=== PATIENT | male | born 1960 | race Caucasian/White ===

== ENCOUNTER 2017-05-07 13:35 | Observation (INO) | payer OTHER ==
[~2017-05-07] VITALS: Ht 182.9 cm; Wt 122.0 kg
[~2017-05-07 13:35] MED LIST: ASPIRIN EC81 MG PO; BACTRIM DS TAB1 EACH PO; CRESTOR20 MG PO; FENOFIBRATE48 MG PO; FISH OIL500 MG PO; METOPROLOL TART50 MG PO; NAPROXEN500 MG PO; OMEPRAZOLE20 MG PO; ULTRAM50 MG PO; VICODIN 5-3001 EACH PO; ZOFRAN8 MG PO
[2017-05-07] MEDS ORDERED: GLUCOPHAGE500 MG PO (14:05)
[2017-05-07] MEDS ORDERED: AMITRIPTYLINE100 MG PO (14:08)
--- NOTE | 2017-05-07 19:41 | NUR ---
RECIEVED REPORT FROM DAY SHIFT NURSE. PT RESTING IN BED. WOULD LIKE TO KNOW WHAT THE PLAN IS. WAITING ON ORDERS FROM MD. PT DENIES FURTHER NEEDS. CALL MCNEILL IN REACH.
--- NOTE | 2017-05-07 20:00 | NUR ---
PT RESTING IN BED. RATES HIS PAIN IN HIS R SIDE/R ABD 06/05. PAIN MEDICATION ADMINISTERED PER MAR. IVF STARTED. PT AWARE HE IS NPO. DENIES FURTHER NEEDS AT THIS TIME.
--- NOTE | 2017-05-07 22:23 | NUR ---
PT C/O PAIN 05/06 IN R SIDE ABD AND R FLANK. PAIN MEDICATION ADMINISTERED PER OCT.
--- NOTE | 2017-05-07 23:23 | NUR ---
PT PACING IN ROOM. STATES HE IS STILL VERY UNCOMFORTABLE. RATES HIS PAIN 7/10 IN SAME AREA. PAIN MEDICATION ADMINISTERED PER MAR. IVF INFUSING. CONT. PULSE OX IN PLACE. DENIES FURTHER NEEDS.
--- NOTE | 2017-05-08 01:11 | NUR ---
PT SLEEPING ON L SIDE. CALL MCNEILL IN REACH. ORDERS IN CHART. LAB WAS CALLED TO DRAW STAT LACTIC.
--- NOTE | 2017-05-08 02:30 | NUR ---
PT RESTING. PT ON FULL LIQUID DIET. DELIVERED PUDDING, JELLO AND WATER. PT C/O PAIN 03/05. 1 TAB NORCO ADMINISTERED. LR INFUSING AT 100. PT DENIES FURTHER NEEDS. CALL MCNEILL IN REACH.
--- NOTE | 2017-05-08 04:34 | NUR ---
PT C/O NAUSEA. STATES HE HAS BEEN HAVING BOUTS OF NAUSEA THAT COME AND GO, EVEN AT HOME. ZOFRAN ADMINISTERED. PT DENIES FURTHER REQUESTS. CALL OSITO IN REACH.
--- NOTE | 2017-05-08 06:27 | NUR ---
ADMITTED YESTERDAY. RECIEVED IV PAIN MEDS LAST NIGHT WHICH WERE D/C THIS MORNING. PT STATES NORCO WORKS WELL. NAUSEOUS X 1 LAST NIGHT ADMINISTERED ZOFRAN AND PT FELL ASLEEP. LACTIC ACID WNL. ANOTHER ONE TO BE DRAWN THIS A.M. DR. LOZOYA IN THIS A.M STATES HE WILL PROBABLY GO HOME.
[2017-05-08] MEDS ORDERED: NORCO 5-325 TA1 EACH PO (07:56)
[2017-05-08] MEDS ORDERED: CYCLOBENZAPRINE10 MG PO (07:58)
--- NOTE | 2017-05-08 08:00 | NUR ---
PT SITITNG UP IN BED EATING BREAKFAST. NO COMPLAINTS OF NAUSEA. PT REPORTS PAIN 6/10, 2 NORCO TABS GIVEN FOR PAIN
--- NOTE | 2017-05-08 09:58 | NUR ---
DISCHARGE EDUCATION GIVEN WITH D/C PACKET EDU. ON ACTIVITY RESTRICTION, SAFE MEDICATION ADMINISTRATION LAST DOSE NEXT DOSE. NO DRIVING WHILE TAKING PRESCRIPTION MEDICATIONS. FOLLOW UP APPOINTMENTS. SIGNS AND SYMPTOMS TO SEEK MEDICAL ATTENTION. ALL EDUCATION GIVEN TO PT WTIH SPOUSE AT BEDSIDE. PT AND SPOUSE ABLE TO VERBALIZE UNDERSTANDING OF ALL EDUCATION. V/S STABLE, LABS STABLE. PAIN IS MANAGED AT TOLERABLE LEVEL.
--- NOTE | 2017-05-09 12:48 | CONS ---
[facility] [address], [place] [address] Signed DATE OF CONSULTATION: 05/07/17 REFERRING PHYSICIAN: Dr. Logan Fenton. CHIEF COMPLAINT: Right flank pain. HISTORY OF PRESENT ILLNESS Shane is a 57-year-old gentleman I know from previously when he had a sigmoid resection for diverticular disease. He had an anastomotic leak and we had to give him a protecting loop ileostomy. In due time, he did very well and had been working at our local [employer] and at the local [employer], but he has been having a lot of trouble with arthritis in his back, so he is currently unemployed. He still lives with his , Taina. He said for some reason in the last 3-4 days, he has had some pain and is kind of right mid flank. He feels like something has a hold on him and won't let go. Since the pain persisted, he decided to come to the emergency room f or evaluation. In the emergency room, his white count was just slightly up at 11.1, but all his other labs were fine including his urinalysis. Physical exam was not particularly concerning. He had brown stool in the vault he was guaiac positive. He then h a d a CT scan of abdomen and pelvis performed and really there is nothing there to explain his pain. 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 I can see the sigmoid anastomosis along with some diverticulosis but otherwise the small bowel is fine and the appendix is fine. No obvious evidence for any ischemic colon. 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 In the meantime, I was taking care of another patient in our endoscopy suite, I have come down now to visit with Shane. Again, we know each other very well. He is lying in bed, watching TV and he seems quite comfortable. He said he is almost embarrassed that he has some pain there but he said for some reason it would not stop and he was just concerned enough to come in. PAST MEDICAL HISTORY Diverticulitis, gastroesophageal reflux disease, bilateral osteoarthritis of his knees, colonic polyps x12 in March of 2017, hypercholesterolemia. PAST SURGICAL HISTORY Left knee open reconstruction. He just had his left knee replaced by the [facility] earlier this year. He has had right knee arthroscopy. He had open sigmoid resection and then a protecting loop ileostomy. He had a tonsillectomy. He has had facial reconstruction and had his colonoscopy in 03/2017 with the [facility]. MEDICATIONS Prilosec, Crestor, Vicodin, fish oil, aspirin, Metoprolol, Metformin, Amitriptyline. ALLERGIES: None. Electronically Signed By: TRISTIAN LOZOYA MD 05/09/17 1248 PATIENT NAME: SHANE DUMONT CONSULTATION DATE OF : 62 PHYSICIAN: TRISTIAN LOZOYA MD REPORT #: [id number] REPORT IS CONFIDENTIAL AND NOT TO BE RELEASED WITHOUT AUTHORIZATION [address] [address] Signed SOCIAL HISTORY He generally likes to smoke about a pack of cigarettes a day. He does not drink. He likes little marijuana from time to time. He has his Taina Whitney at [phone]. He has 2 children with his first . He is currently unemployed. He said he is 30% disabled with the [facility] in [place], [place]. Dr. Herve Mota is his primary care provider. FAMILY HISTORY No family history of colon cancer. His father had bypass surgery. Mother had aneurysm near her heart. REVIEW OF SYSTEMS He had 10 systems reviewed and says he has been doing great except that his back has been bothering quite a bit from the arthritis. PHYSICAL EXAMINATION VITAL SIGNS: His blood pressure is 130/78, heart rate 49, respiratory rate 16, temperature 97.2, he is 97% on room air. He is 6 feet tall and 120 kg. GENERAL: Shane is a 57-year-old gentleman, lying supine in his hospital bed, watching TV. He does not appear systemically ill or toxic. He does not appear to be in any pain whatsoever. LUNGS: Clear to auscultation. HEART: Actually bradycardic. ABDOMEN: Obese. It is moderately protuberant, but soft. His incisions are well healed. No obvious incisional hernia. We palpated the right flank and no pain currently in that area. RECTAL: Exam is not repeated. He was guaiac-positive in the ER, with brown stool. LABORATORY DATA His white blood count 11.1, hemoglobin 17, neutrophils 55. BUN 11, creatinine 0.8, glucose 144. Liver function tests negative. Lipase and amylase negative. Urinalysis negative. Albumin is 4.6. 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 We can see the sigmoid anastomosis. He has old diverticulosis. Small bowel is unremarkable. His appendix is unremarkable. ASSESSMENT AND PLAN Shane is a 57-year-old gentleman who appears to have right flank pain. He seems to be unimpressive on physical exam and CT scan findings no issues. We are going to admit him for observation overnight, hydrate him, let him have some clear liquids. We will repeat the labs in the morning. He has expressed understanding and agrees with above plan. Electronically Signed By: TRISTIAN LOZOYA MD 05/09/17 1248 PATIENT NAME: SHANE DUMONT CONSULTATION DATE OF : 62 PHYSICIAN: TRISTIAN LOZOYA MD REPORT #: [id number] REPORT IS CONFIDENTIAL AND NOT TO BE RELEASED WITHOUT AUTHORIZATION [address] [place] [address] Signed MD ARLEEN Olsen/Modl /[id number] cc: Dr. Herve Mota [facility] Electronically Signed By: TRISTIAN LOZOYA MD 05/09/17 1248 PATIENT NAME: SHANE DUMONT CONSULTATION DATE OF : 62 PHYSICIAN: TRISTIAN LOZOYA MD REPORT #: [id number] REPORT IS CONFIDENTIAL AND NOT TO BE RELEASED WITHOUT AUTHORIZATION
--- NOTE | 2017-05-09 12:48 | DS ---
[facility] [address] [facility] [place] [address] Signed DATE OF DISCHARGE: 05/08/17 FINAL DIAGNOSIS: Muscle strain right lateral abdomen and right flank. PROCEDURES: CT scan of abdomen and pelvis. HISTORY OF PRESENT ILLNESS Shane is a 57-year-old gentleman I have known for many years. He decided last night to come into the emergency room because of pain in right side of his abdomen and in the right flank area. He said it has been there for several days. At first he was not sure why. After he thought about it, he realized he had been over cleaning his barbecue and thinks maybe he pulled a muscle. He is used to taking [place] on a daily basis for his chronic pain issues, particularly his lower back. Consequently, they were having trouble getting his pain under control in the emergency room. We could see that his abdominal exam was not particularly concerning. White count was borderline at 11. Other labs were fine including his liver function tests, amylase and his lipase and his urine. CT scan was ordered and this was unremarkable. I had been asked to admit him as a general surgeon on-call. We also see that Shane underwent his colonoscopy in March of this year through the [facility] and he said 12 polyps were removed. Everything seemed to go fine. HOSPITAL COURSE Shane was admitted as above and treated conservatively. We actually gave him oral Dilaudid and the dose was not high enough to cover his pains. We added [place] and that did just fine. He was then able to sleep and get through the night quite easily. This morning he said the pain is s till there. It is not terrible pain. He said it is under control with [place]. We did talk about his gallbladder. We think probably that is fine but in the future he might consider an ultrasound or HIDA scan if his pain does not lydia. However, he told me t h e pain does not seem to be better or worse with eating or with his bowel movements. It is more related to movement. Consequently Shane said he would like to go home. We are going to let him go I think with his [place] and then add some Flexeril for a few days and see if that does not improve. DISCHARGE PLANS AND MEDICATIONS Shane is going to be discharged home with a prescription for [place] 5/325 1-2 tablets p.o. q.4-6 hours p.r.n. pain. We will dispense 40 tablets with no refills. We will also give him Flexeril 10 mg p.o. t.i.d. p.r.n. for muscle spasm and pain. We will dispense 21 tablets with no refills. This should not exceed 30 mg per day. He can resume his other chronic medications. He can follow a regular diet at home and follow routine activities of daily living. He should not do any heavy pushing, pulling, or lifting over about 20 pounds. He will follow up with his primary care provider here in the next week or so and see if he is not improved. He is always welcome to follow up my office as Electronically Signed By: TRISTIAN LOZOYA MD 05/09/17 4085 PATIENT NAME: SHANE DUMONT DISCHARGE SUMMARY DATE OF : 62 PHYSICIAN: TRISTIAN LOZOYA MD REPORT #: [id number] REPORT IS CONFIDENTIAL AND NOT TO BE RELEASED WITHOUT AUTHORIZATION [address] [address] Signed needed. He has expressed understanding and agrees to above plan. MD ARLEEN Olsen/Vladl /[id number] cc: Herve Mota MD Electronically Signed By: TRISTIAN LOZOYA MD 05/09/17 1248 PATIENT NAME: JULIASHANE BUCKLEY DISCHARGE SUMMARY DATE OF : 62 PHYSICIAN: TRISTIAN LOZOYA MD REPORT #: [id number] REPORT IS CONFIDENTIAL AND NOT TO BE RELEASED WITHOUT AUTHORIZATION
== END 2017-05-08 10:02 | disposition home or self-care (01) ==
LOC: ED 13:35 → MS 13:36
PROVIDERS: ADMIT Colon & Rectal Surgery
DX: S39.011A Strain of muscle, fascia and tendon of abdomen, initial encounter (principal); X50.1XXA Overexertion from prolonged static or awkward postures, initial encounter; E78.00 Pure hypercholesterolemia, unspecified; K21.9 Gastro-esophageal reflux disease without esophagitis; E66.9 Obesity, unspecified; M17.11 Unilateral primary osteoarthritis, right knee; F17.210 Nicotine dependence, cigarettes, uncomplicated; G89.29 Other chronic pain; M54.9 Dorsalgia, unspecified; Y93.H9 Activity, other involving exterior property and land maintenance, building and construction; Z23 Encounter for immunization; Z86.010 Personal history of colon polyps; Z79.84 Long term (current) use of oral hypoglycemic drugs; Z79.899 Other long term (current) drug therapy; Z68.36 Body mass index [BMI] 36.0-36.9, adult
CPT/HCPCS: 36415; 74177; 80053; 81001; 82150; 83605; 83690; 83735; 84100; 85025; 90674; 96361; 96372; 96374; 96375; 96376; 99285; G0008; G0378; J1170; J1644; J2405; J7030; J7120; Q9967

== ENCOUNTER 2020-11-09 17:34 | Emergency (ER) | payer MEDICARE ==
[~2020-11-09] VITALS: Ht 182.9 cm; Wt 122.0 kg
[~2020-11-09 17:34] MED LIST changes: +AMITRIPTYLINE100 MG PO; +CYCLOBENZAPRINE10 MG PO; +GLUCOPHAGE500 MG PO; +NORCO 5-325 TA1 EACH PO
== END 2020-11-09 21:20 | disposition home or self-care (01) ==
LOC: ED 17:34
DX: R10.9 Unspecified abdominal pain (principal); K21.9 Gastro-esophageal reflux disease without esophagitis; F17.200 Nicotine dependence, unspecified, uncomplicated; Z79.899 Other long term (current) drug therapy; Z79.01 Long term (current) use of anticoagulants; Z79.82 Long term (current) use of aspirin
CPT/HCPCS: 74176; 80053; 81001; 85025; 96374; 96375; 99284-25; J1170; J1885; J2405

== ENCOUNTER 2023-01-17 09:51 | Emergency (ER) | payer OTHER, MEDICARE ==
[~2023-01-17] VITALS: Ht 182.9 cm; Wt 112.9 kg
[~2023-01-17 09:51] MED LIST changes: +HYDROCODONE BIT10 MG PO
[2023-01-17 10:55] VITALS: BP 158/81
== END 2023-01-17 10:57 | disposition home or self-care (01) ==
LOC: ED 09:51
DX: I48.91 Unspecified atrial fibrillation (principal); K21.9 Gastro-esophageal reflux disease without esophagitis; F17.200 Nicotine dependence, unspecified, uncomplicated; Z79.899 Other long term (current) drug therapy; Z79.84 Long term (current) use of oral hypoglycemic drugs; Z79.82 Long term (current) use of aspirin
CPT/HCPCS: 99284

== ENCOUNTER 2023-01-24 06:50 | Day surgery (SDC) | payer OTHER ==
[2023-01-17 09:31] VITALS: BP 121/78
--- NOTE | 2023-01-17 09:55 | NUR ---
pt5 ekg showed a-fib and no records to show that this is a normal rhythem for pt. Pt asked to go to the ED due to no local PCP. Talked with charge nurse Emelina in the OR and PT case will be cancled till cardio clearance is obtained. Dr Farmer office notified.
[~2023-01-24] VITALS: Ht 182.9 cm; Wt 113.6 kg
[2023-01-24 07:15] VITALS: BP 147/92
[2023-01-24 10:29] VITALS: BP 105/65
--- NOTE | 2023-01-24 10:44 | NUR ---
01/24/23 1044 Adriana Strong 6049 PT ARRIVED IN PACU SLEEPY. ABD SOFT AND PASSING FLATUS. 0955 BLOOD SUGAR 117. ANESTHESIA AWARE. 1015 AWAKE TALKING TO STAFF. 1020 GETTING DRESSED WITH STAND BY ASSIST. 1027 DC INSTRUCTIONS GIVEN. ALL QUESTIONS ANSWERED. LEFT VIA W/C.
--- NOTE | 2023-01-24 11:20 | OR ---
[facility] [address] [place], [place] [address] Signed DATE OF OPERATION: 01/24/2023 SURGEON: Tristian Lozoya MD PREOPERATIVE DIAGNOSES: 1. History of diverticulitis requiring sigmoid resection in 2006. 2. Personal history of colonic polyps. 3. Internal hemorrhoids. POSTOPERATIVE DIAGNOSES: 1. 3 mm polyps x2 at 5 cm in rectum. 2. 4 mm polyp at 30 cm in sigmoid colon. 3. Tattoo at 35 cm in sigmoid colon. 4. Colorectal circular EEA anastomosis at 18 cm. 5. Moderate internal hemorrhoids. PROCEDURE: Colonoscopy with hot biopsy. ESTIMATED BLOOD LOSS: None. INDICATIONS: Shane is a 62-year-old gentleman I have known for many years. I helped him back in 2006 at the age of 46 with his recurring diverticulitis. He had internal hemorrhoids and a 4 mm serrated adenomatous polyp at that time. We removed that at 25 cm. We helped him with his sigmoid resection that same year. The EEA staple line had leaked and we had to go back and fix that and give him a protecting loop ileostomy. Later, we reversed the loop ileostomy. He said he has been doing well since that time. He has been going to the [facility] in [place], [place]. He remembers possibly two colonoscopies performed through the [facility] since 2006. There is mention in the notes from his [facility] provider about a colonoscopy in 2017. Shane is pretty certain there were colonic polyps removed. He had been asked to follow up in 3 to 5 years. Again, he has no lower GI complaints. There is no family history of colon cancer or polyps. In the office, I gave Shane a pamphlet on colonoscopy. We reviewed the nature of the test. There is risk including, but not limited to gas bloating, crampy abdominal pain, bleeding, perforation requiring surgery and missed diagnosis. We also reviewed the written instructions for the bowel prep line by line. He said the MiraLAX and Gatorade was much better over the one gallon jug. We also had him hold his aspirin 3 days prior to the procedure. Given his very full round face, heavy neck, Electronically Signed By: TRISTIAN LOZOYA MD 01/24/23 1120 PATIENT NAME: SHANE DUMONT OPERATIVE REPORT DATE OF : 62 REPORT #: [id number] PHYSICIAN: TRISTIAN LOZOYA MD PCP: RYLEE HOFFMAN MD REPORT IS CONFIDENTIAL AND NOT TO BE RELEASED WITHOUT AUTHORIZATION [facility] [address] [place] [id number] Signed chest and abdomen along with his medical issues as well as his need for hydrocodone and marijuana, we asked that an anesthesia provider help us with increased monitoring sedation with propofol. That proved to be a dao decision. PROCEDURE NOTE: Shane was taken into our endoscopy suite and placed in the left lateral decubitus position. He was given monitored anesthesia care with propofol infusion per our nurse solar sales associate. A digital rectal exam was performed. He probably has some mild pruritus ani. No external hemorrhoids. Good sphincter tone. There were no masses. The adult colonoscope had been introduced and advanced all around into the cecum under direct visualization of the camera without difficulty. His prep was good as always. We could easily see the appendiceal orifice and the ileocecal valve. We had taken pictures throughout for photodocumentation. The scope was then slowly withdrawn. He does have a few diverticula in the left colon. They are moderate in size, few in number, and scattered about. We could easily see the tattoo at 35 cm and then at 30 cm and back down in the rectum at 5 cm, he had small polyps removed with the help of hot biopsy forceps. We could easily see the colorectal anastomosis up at 18 cm. It has healed very nicely. There is no granulation tissue, ulceration or other issues. It is widely patent. Once in the rectum, the scope had been retroflexed and he does have mild to moderate internal hemorrhoid columns. After this, the gas was suctioned out and the colonoscope removed. Shane tolerated the procedure quite well. RECOMMENDATIONS: I will see Shane back in my office in 7 to 14 days to review his results. We will also check on his records from the [facility]. It looks like he is going to be on the five year plan due to his personal history of colonic polyps. He will always need monitored anesthesia care as he did today. Tristian Lozoya MD ALB/MODL /[id number] cc: MD Tristian Whitlock MD Electronically Signed By: TRISTIAN LOZOYA MD 01/24/23 1120 PATIENT NAME: SHANE DUMONT OPERATIVE REPORT DATE OF : 62 REPORT #: [id number] PHYSICIAN: TRISTIAN LOZOYA MD PCP: RYLEE HOFFMAN MD REPORT IS CONFIDENTIAL AND NOT TO BE RELEASED WITHOUT AUTHORIZATION [facility] [address] [place], [place] [address] Signed Copies: RYLEE HOFFMAN MD, ANDREW L MD ~ Electronically Signed By: TRISTIAN LOZOYA MD 01/24/23 1120 PATIENT NAME: SHANE DUMONT OPERATIVE REPORT DATE OF : 62 REPORT #: [id number] PHYSICIAN: TRISTIAN LOZOYA MD PCP: RYLEE HOFFMAN MD REPORT IS CONFIDENTIAL AND NOT TO BE RELEASED WITHOUT AUTHORIZATION
--- NOTE | 2023-01-24 13:55 | NUR ---
PT ALERT, ORIENTED AND FAMILY WILL BE HERE FOR DC. PT HAS HAD SCOPE BEFORE, ALL QUESTIONS ASKED ANSWERED. PT REQUESTED PRAYER, WILL FOLLOW
--- NOTE | 2023-01-25 12:28 | EKG ---
[facility] [address] [place] [address] Signed Atrial fibrillation with premature ventricular or aberrantly conducted complexes ST \T\ T wave abnormality, consider anterolateral ischemia Prolonged QT Abnormal ECG When compared with ECG of 17-JAN-2023 08:37, Nonspecific T wave abnormality has replaced inverted T waves in Inferior leads Confirmed by RUSSEL LOMBARDO MD ([id number]) on 01/25/2023 12:28:45 PM Electronically Signed By: RUSSEL LOMBARDO MD 01/25/23 1228 PATIENT NAME: JUDY DUMONT Electrocardiogram DATE OF : 62 PHYSICIAN: RUSSEL LOMBARDO MD REPORT #: [id number] REPORT IS CONFIDENTIAL AND NOT TO BE RELEASED WITHOUT AUTHORIZATION
--- NOTE | 2023-01-29 06:02 | PATH ---
[facility] [address] [facility] [place], [place] [address] Signed SPECIMEN(S): A RECTAL POLYP AT 5 CM SPECIMEN(S): B SIGMOID POLYP AT 30 CM SPECIMEN SOURCE: A. RECTAL POLYP AT 5 CM B. SIGMOID POLYP AT 30 CM CLINICAL HISTORY: Colonoscopy. Personal history of colon polyps, personal history sigmoid resection. Post-op DX: Polyps, diverticulosis, internal hemorrhoids. FINAL PATHOLOGIC DIAGNOSIS: A. Rectal polyp at 5 cm: - Hyperplastic polyp. - Negative for dysplasia. B. Sigmoid polyp at 30 cm: - Hyperplastic polyp. - Negative for dysplasia. NA:caw:C2NR MICROSCOPIC EXAMINATION: Histologic sections of all submitted blocks are examined by light microscopy. These findings, together with the gross examination, support the pathologic diagnosis. GROSS DESCRIPTION: A. The specimen, labeled and designated "Post, rectal polyp at 5 cm," is received in formalin and consists of two diego soft tissue fragments, ranging from 0.3-0.4 cm. The specimen is entirely submitted in (A1). B. The specimen, labeled and designated "Post, sigmoid polyp at 30 cm," is received in formalin and consists of one diego soft tissue fragment, 0.2 cm. The specimen is entirely submitted in (B1). VB (under the direct supervision of a pathologist) The Gross Description was prepared using a voice recognition system. The report was reviewed for accuracy; however, sound-alike word errors, addition and/or deletions may occur. If there is any question about this report, please contact Client Services. PERFORMING LABORATORY: The technical component was performed by [facility], Curt Thompson, PATIENT NAME: JUDY DUMONT PATHOLOGY DATE OF : 62 REPORT #: [id number] PHYSICIAN: SHARON OGDEN PCP: RYLEE HOFFMAN MD REPORT IS CONFIDENTIAL AND NOT TO BE RELEASED WITHOUT AUTHORIZATION [facility] [address] [place], [place] [address] [place] [address] (CLIA# [id number]). Professional interpretation was performed by [facility], [address] [place] [address] (CLIA# [id number]). Diagnostician: Freya Mejia MD Pathologist Electronically Signed 01/26/2023 Copies: ~ PATIENT NAME: JUDY DUMONT PATHOLOGY DATE OF : 62 REPORT #: [id number] PHYSICIAN: SHARON OGDEN PCP: RYLEE HOFFMAN MD REPORT IS CONFIDENTIAL AND NOT TO BE RELEASED WITHOUT AUTHORIZATION
== END 2023-01-24 10:27 | disposition home or self-care (01) ==
LOC: DS 06:50 → OPS 06:50 → DS 08:00 → OPS 08:00 → DS 09:45 → OPS 10:27
PROVIDERS: ATTEND Colon & Rectal Surgery
PROC: 0DBN8ZX Excision of Sigmoid Colon, Via Natural or Artificial Opening Endoscopic, Diagnostic (ICD-10-PCS; 2023-01-24)
PROC: 3E0H8KZ Introduction of Other Diagnostic Substance into Lower GI, Via Natural or Artificial Opening Endoscopic (ICD-10-PCS; 2023-01-24)
PROC: 0DBP8ZX Excision of Rectum, Via Natural or Artificial Opening Endoscopic, Diagnostic (ICD-10-PCS; principal; 2023-01-24 08:00)
DX: Z12.11 Encounter for screening for malignant neoplasm of colon (principal); K63.5 Polyp of colon; Z86.010 Personal history of colon polyps; K64.8 Other hemorrhoids; E11.9 Type 2 diabetes mellitus without complications; I10 Essential (primary) hypertension; K57.30 Diverticulosis of large intestine without perforation or abscess without bleeding; I25.10 Atherosclerotic heart disease of native coronary artery without angina pectoris; F17.210 Nicotine dependence, cigarettes, uncomplicated; Z79.899 Other long term (current) drug therapy; Z79.84 Long term (current) use of oral hypoglycemic drugs
CPT/HCPCS: 00811; 88305; 93005; 93010; J0690; J2704; J7121